=== PATIENT | female | born 1975 | race Caucasian/White ===

== ENCOUNTER 2020-05-01 12:00 | Emergency (ER) | payer OTHER, SELFPAY ==
[2020-05-01 12:44] VITALS: BP 125/67; PULSE 85; RESP 20; TEMP 37.1; O2SAT 100
--- NOTE | 2020-05-01 13:02 | ED.URI ---
HPI - URI/Sore Throat General Chief Complaint: Upper Respiratory Infection Stated Complaint: headach,sore throat fever nausea Time Seen by Provider: 05/01/20 13:02 Source: patient and RN notes reviewed History of Present Illness HPI Narrative: Patient is a 44-year-old female who presents the urgent care with complaints of migraine that started which does improve slightly with Tylenol, intermittent fevers as high as 100 Fahrenheit, a slight nonproductive cough without shortness of breath. Patient states that she started with a right earache yesterday and woke up today with a sore throat. Patient states that she does have some mild sinus drainage on the back of her throat. States that she is also vomited a couple times each day, with the exception of today. Patient denies of any abdominal pain. States that she does work with the public at a local [employer] and no one else is sick. Patient states that her is also not been feeling ill. Patient denies any other use of [id number] medication for her symptoms. No acute distress noted. Patient read the plan of care. Related Data Home Medications Medication Instructions Recorded Confirmed albuterol sulfate 2 inh INHALATION DAILY 05/01/20 05/01/20 fluticasone propionate [Flovent 1 puff INHALATION Q12H 05/01/20 05/01/20 HFA] Allergies Allergy/AdvReac Type Severity Reaction Status Date / Time aspirin AdvReac Unknown Ulcers Unverified 05/01/20 12:54 NSAIDS (Non-Steroidal AdvReac Unknown Ulcers Unverified 05/01/20 12:54 Anti-Inflamma Review of Systems Review of Systems: Narrative: CONSTITUTIONAL: Reports of low-grade fevers EYES: Denies visual changes, redness, or discharge. ENT: Reports of left otalgia and sore throat with mild postnasal drainage CARDIOVASCULAR: Denies chest pain, palpitations, or edema. RESPIRATORY: Reports of nonproductive cough without dyspnea GASTROINTESTINAL: Reports of intermittent vomiting without nausea or abdominal pain GENITOURINARY: Denies dysuria or hematuria. SKIN: Denies rash or itching. MUSCULOSKELETAL: Denies back pain, joint pain, or myalgia. NEUROLOGIC: Denies headache, numbness, or weakness. All other systems reviewed are negative, except as documented in HPI. PMFSH Comments At the time of my signature, I reviewed and agree with the nursing past medical, surgical, social, and family history. There is no relevant family history pertinent to the patient complaint. Exam Narrative: Exam Narrative: GENERAL: This is a well-nourished, well-developed patient, appears slightly fatigued HEAD: normocephalic, atraumatic. EYES: PERRL. Sclera clear/white. Vision is grossly intact. EARS: External ears normal, auditory canals clear and without drainage, TMs normal without perforation. Hearing grossly intact. NOSE: External nose normal with no obvious nasal discharge, nares without redness, no rhinorrhea. THROAT: Mucous membranes moist, mild erythema noted posterior oropharynx mild postnasal drainage NECK: Neck supple CARDIOVASCULAR: Regular rate and rhythm without murmurs, gallops, or rubs. RESPIRATORY: Clear to auscultation. Breath sounds equal bilaterally. No wheezes, rales, or rhonchi. GASTROINTESTINAL: Abdomen soft, non-tender, nondistended. SKIN: warm, intact with no suspicious lesions or rash, good texture and turgor. NEURO: awake, alert, and oriented to person, place and time. There were no obvious focal neurologic abnormalities. EXTREMITIES: No clubbing, cyanosis, or edema. Course Vital Signs Vital signs: Vital Signs Temperature 98.8 F 05/01/20 12:44 Pulse Rate 85 05/01/20 12:44 Respiratory Rate 05/01/20 12:44 Blood Pressure 125/67 05/01/20 12:44 Pulse Oximetry 100 05/01/20 12:44 Temperature 98.8 F 05/01/20 12:44 Pulse Rate 85 05/01/20 12:44 Respiratory Rate 05/01/20 12:44 Blood Pressure 125/67 05/01/20 12:44 Pulse Oximetry 100 05/01/20 12:44 Reviewed MDM - URI/Sore Thr
== END 2020-05-01 13:41 | disposition home or self-care (01) ==
PROVIDERS: Emergency Provider Nurse Practitioner Family
DX: J02.9 Acute pharyngitis, unspecified (principal); R50.9 Fever, unspecified; Z20.828 Contact with and (suspected) exposure to other viral communicable diseases; I34.1 Nonrheumatic mitral (valve) prolapse; J45.909 Unspecified asthma, uncomplicated
CPT/HCPCS: 87081; 87880; 99213; G0463

== ENCOUNTER 2020-05-03 06:47 | Outpatient (NON) | payer OTHER, SELFPAY ==
[2020-05-03 19:12] LABS: SARS-CoV-2 RNA PCR Negative
== END 2020-05-03 06:48 ==
PROVIDERS: Visit Provider Nurse Practitioner Family
DX: J02.9 Acute pharyngitis, unspecified (principal); R50.9 Fever, unspecified
CPT/HCPCS: 87635; C9803; U0003

== ENCOUNTER 2023-04-02 12:05 | Emergency (ER) | payer OTHER, SELFPAY ==
[2023-04-02 12:15] VITALS: BP 129/84; PULSE 92; RESP 18; TEMP 36.2; O2SAT 99
--- NOTE | 2023-04-02 12:27 | ED.GENADULT ---
HPI - General Adult General Chief complaint: Upper Respiratory Infection Stated complaint: Shortness of Breath/Cough Time Seen by Provider: 04/02/23 12:28 Source: patient, RN notes reviewed and old records reviewed Mode of arrival: ambulatory Limitations: no limitations History of Present Illness HPI narrative: 47-year-old female with a history of asthma presents for shortness of breath and cough. Patient states that started 4-5 days ago as a runny nose and has progressively gotten worse to chest tightness, cough and shortness of breath. Normally uses her inhaler, albuterol twice daily when this starts but has been using it up to 4 times a day with no improvement. Denies any chest pain, fevers. Onset (ago): day(s) (-5) Related Data Home Medications Medication Instructions Recorded Confirmed albuterol sulfate 90 mcg/actuation 2 inh inhalation DAILY 05/01/20 04/02/23 aerosol inhaler fluticasone propionate 220 1 puff inhalation Q12H 05/01/20 04/02/23 mcg/actuation HFA aerosol inhaler (Flovent HFA) budesonide-formoterol HFA 160 2 puff inhalation BID 04/02/23 04/02/23 mcg-4.5 mcg/actuation aerosol inhaler Allergies Allergy/AdvReac Type Severity Reaction Status Date / Time aspirin AdvReac Unknown Ulcers Unverified 04/02/23 12:25 NSAIDS (Non-Steroidal AdvReac Unknown Ulcers Unverified 04/02/23 12:25 Anti-Inflamma Review of Systems Review of Systems: All systems reviewed & are unremarkable except as noted in HPI and below Constitutional: Constitutional: Reports no additional constitutional complaints Eyes: Eyes: Reports no additional eye complaints ENT: Reports system reviewed and no additional complaints, except as documented Cardiovascular: Cardiovascular: Reports no additional cardiovascular complaints, Denies chest pain and Denies dyspnea Respiratory: Respiratory: Reports as per HPI, Reports chest congestion, Reports cough, Reports dyspnea and Reports wheezing Gastrointestinal: Gastrointestinal: Reports no additional gastrointestinal complaints, Denies abdominal pain, Denies nausea and Denies vomiting Musculoskeletal: Musculoskeletal: Reports no additional musculoskeletal complaints Integumentary/Breasts: Skin/Breast: Reports system reviewed and no additional complaints, except as docu Neurologic: Reports system reviewed and no additional complaints, except as documented Psychiatric: Psychiatric: Reports no additional psychiatric complaints Allergic/Immunologic: Allergic/Immunologic: Reports no additional allergic/immunologic complaints PMFSH Past Medical History Medical History (Updated 04/02/23 @ 19:41 by Jaquelin Diaz APRN) Asthma Comments At the time of my signature, I reviewed and agree with the nursing past medical, surgical, social, and family history. There is no relevant family history pertinent to the patient complaint. Exam Const: General: cooperative, healthy appearing, comfortable, no acute distress, well developed, alert and well nourished Nutritional Appearance: well nourished Orientation/consciousness: patient oriented x3 Limitations: no limitations HENMT: Head: normal to inspection Ears: hearing grossly normal bilaterally, external ears normal, TM's normal bilaterally and EAC's normal Face/Nose/Sinus: Normal external nose present, Normal nares present, Normal nasal mucous membranes and turbinates present and normal facial exam Face and sinus: normal facial exam Mouth: Yes Normal oral and palatal mucosa present, Yes lip normal and Yes moist mucous membranes Throat: posterior oropharynx normal, uvula midline and postnasal drainage Eyes: General: appearance normal, both eyes and all related structures Alignment and Position: alignment normal Periorbital: periorbital findings normal Pupils: Equal, round and reactive pupils present EOM: EOMs intact bilaterally Neck: Neck: normal visual inspection, full ROM, no lymphadenopathy and no meningeal signs Chest: Chest
== END 2023-04-02 12:47 | disposition home or self-care (01) ==
PROVIDERS: Emergency Provider Nurse Practitioner
DX: J40 Bronchitis, not specified as acute or chronic (principal); J45.909 Unspecified asthma, uncomplicated
CPT/HCPCS: 99213; G0463

== ENCOUNTER 2023-08-24 14:51 | Emergency (ER) | payer OTHER, SELFPAY ==
--- NOTE | ~2023-08-24 | XR_ITS ---
EXAMINATION: XR foot RT min 3V DATE: 08/24/2023 15:37 INDICATION: Pain at the arch of the right foot TECHNIQUE: Dorsoplantar, two oblique and lateral views of the right foot were obtained. COMPARISON: None. FINDINGS: Alignment is normal. No fracture. Joint spaces are normal. Small plantar calcaneal spur. Soft tissues are unremarkable. IMPRESSION: 1. Small plantar calcaneal spur. No acute osseous abnormality. Reviewed, dictated and finalized at location A. [employer] VICE PRESIDENT
[2023-08-24 15:02] VITALS: BP 151/97; PULSE 101; RESP 16; TEMP 36.9; O2SAT 98
--- NOTE | 2023-08-24 15:13 | ED.LOWEXIN ---
HPI - Extremity Injury (Lower) General Chief Complaint: Extremity Problem,Nontraumatic Stated Complaint: Right Foot Pain Time Seen by Provider: 08/24/23 15:13 Source: patient Mode of arrival: ambulatory Limitations: no limitations History of Present Illness HPI Narrative: 47-year-old female presented for complaint of right foot pain. Onset 1 month. She reports the pain is worse to the bottom of the foot and heel. Pain is constant, sharp. Rates 8/10. Pain is starting to radiate up towards the knee. Denies injury. denies numbness, tingling, weakness of the extremity. Patient is scheduled with PCP next week but states she could not wait. Taking Tylenol occasionally for pain. Related Data Home Medications Medication Instructions Recorded Confirmed albuterol sulfate 90 mcg/actuation 2 inh inhalation DAILY 05/01/20 08/24/23 aerosol inhaler budesonide-formoterol HFA 160 2 puff inhalation BID 04/02/23 08/24/23 mcg-4.5 mcg/actuation aerosol inhaler Allergies Allergy/AdvReac Type Severity Reaction Status Date / Time aspirin AdvReac Unknown Ulcers Unverified 08/24/23 15:03 NSAIDS (Non-Steroidal AdvReac Unknown Ulcers Unverified 08/24/23 15:03 Anti-Inflamma Review of Systems Review of Systems: CONSTITUTIONAL: Denies body aches, fever, chills EYES: Denies visual changes ENT: Denies rhinorrhea, congestion CARDIOVASCULAR: Denies chest pain, palpitations, or edema. RESPIRATORY: Denies cough or dyspnea. GASTROINTESTINAL: Denies abdominal pain, nausea, vomiting, or diarrhea. SKIN: Denies rash, itching, or wounds. MUSCULOSKELETAL: Reports right foot pain Denies back pain, joint pain, or myalgia. NEUROLOGIC: Denies headache, numbness, tingling, or weakness. PSYCH: Denies depression or anxiety. All systems reviewed & are unremarkable except as noted in HPI and below PMFSH Past Medical History Medical History Asthma Comments At time of signature, I have reviewed and agree with nursing past medical, surgical, social and family history unless otherwise noted. Please see nursing chart for further information. There is no relevant family history pertinent to the presenting complaint Exam Narrative: GENERAL: Well-appearing, and in no acute distress. HEAD: Normocephalic, atraumatic. CHEST: Speaks in full sentences. No respiratory distress. HEART: Regular rate and rhythm. Normal and equal peripheral pulses. EXTREMITIES: Pain reported on Right foot plantar surface mid foot to heel. Tender with palpation surrounding heel. No swelling erythema or bruising.Right foot has normal strength and sensation, normal range of motion but endorses pain to heel with flexion/extension of ankle. No open wounds, or obvious deformity; alignment normal, pulse palpable and equal bilaterally, skin warm, dry, pink. Capillary refill less than 3 seconds. SKIN: Warm, dry, no rash. NEURO: Alert and oriented x3. PSYCH: Normal mood and affect Course Course Emergency Course: Patient is aware of diagnosis, understands and agrees to treatment plan. Anticipatory guidance given. Patient agrees to follow-up as directed and is aware of reasons to seek care at the emergency department. Portions of this record may have been created with voice recognition software Level of Care: Express Care Visit Vital Signs Vital signs: Vital Signs Temperature 98.4 F 08/24/23 15:02 Pulse Rate 101 H 08/24/23 15:02 Respiratory Rate 16 08/24/23 15:02 Blood Pressure 151/97 H 08/24/23 15:02 Pulse Oximetry 98 08/24/23 15:02 Oxygen Delivery Room Air 08/24/23 15:02 Temperature 98.4 F 08/24/23 15:02 Pulse Rate 101 H 08/24/23 15:02 Respiratory Rate 16 08/24/23 15:02 Blood Pressure 151/97 H 08/24/23 15:02 Pulse Oximetry 98 08/24/23 15:02 Oxygen Delivery Room Air 08/24/23 15:02 Reviewed MDM - Extremity Injury (Lower) MDM Narrative Medical decisio
== END 2023-08-24 16:01 | disposition home or self-care (01) ==
PROVIDERS: Emergency Provider Nurse Practitioner Family
DX: M79.671 Pain in right foot (principal); J45.909 Unspecified asthma, uncomplicated
CPT/HCPCS: 73630; 99213; G0463

== ENCOUNTER 2024-07-13 10:00 | Emergency (ER) | payer OTHER, SELFPAY ==
[2024-07-13 10:24] VITALS: BP 103/78; PULSE 97; RESP 18; TEMP 36.7; O2SAT 98
--- NOTE | 2024-07-13 10:37 | ED.URI ---
HPI - URI/Sore Throat General Chief Complaint: Upper Respiratory Infection Stated Complaint: Migraine Time Seen by Provider: 07/13/24 10:37 History of Present Illness HPI Narrative: 48 y/o female with hx COPD presented for c/o headache, sore throat, cough, nasal congestion and sinus pressure. Onset 2 days. States the cough feels tight in the chest. Using inhalers as directed. Denies sob, wheezing, n/v/d/f/c. Related Data Home Medications Medication Instructions Recorded Confirmed albuterol sulfate 90 mcg/actuation 2 inh inhalation DAILY 05/01/20 07/13/24 aerosol inhaler budesonide-formoterol HFA 160 2 puff inhalation BID 04/02/23 07/13/24 mcg-4.5 mcg/actuation aerosol inhaler Allergies Allergy/AdvReac Type Severity Reaction Status Date / Time aspirin AdvReac Unknown Ulcers Verified 07/13/24 10:31 NSAIDS (Non-Steroidal AdvReac Unknown Ulcers Verified 07/13/24 10:31 Anti-Inflamma Review of Systems Review of Systems: CONSTITUTIONAL: Denies body aches, fever, chills, or sweats. EYES: Denies visual changes, redness, or discharge. ENT: reports rhinorrhea, congestion, sore throat otalgia. CARDIOVASCULAR: Denies chest pain, palpitations, or edema. RESPIRATORY: Denies dyspnea. GASTROINTESTINAL: Denies abdominal pain, nausea, vomiting, or diarrhea. SKIN: Denies rash, itching, or wounds. MUSCULOSKELETAL: Denies back pain, joint pain, or myalgia. NEUROLOGIC: reports headache PMFSH Past Medical History Medical History Asthma Surgical History Surgical History History of cholecystectomy Family History Family History Father Alcoholism Mother Lung cancer Sibling Alcoholism Hypertension Other Asthma Social History Social History Smoking status: Never smoker Alcohol intake: current Alcohol use details: occasionally Substance use: never Substance use type: does not use Do You Feel Safe in your Home?: Yes Lack of Transportation: No Lack of Food: Never True Current Housing: I Have Housing Concerned About Future Housing: No Difficulty Paying Gas/Electric Bills: No Difficulty Paying for Meds: No Currently Unemployed: No Education: Grade School Difficulty w/ Childcare or Family Care: No Exam Narrative: GENERAL: mildly Ill-appearing, no acute distress. EYES: conjunctivae clear ENT: Mucous membranes moist. TMs pearly momin with normal light reflex bilaterally; no tragal tenderness. Oropharynx severely erythematous Tonsils enlarged 2+ with exudate. No drooling, no hoarseness, no trismus, uvula midline. No tripod positioning, hot potato voice, or soft palate swelling. NECK: Supple. bilaterally anterior cervical lymphadenopathy CHEST: Clear to auscultation, breath sounds equal. No respiratory distress, speaks in full sentences. HEART: Regular rate and rhythm. No murmur heard. SKIN: Warm, dry, no rash. NEURO: Alert and oriented x3. Course Course Emergency Course: Patient is aware of diagnosis, understands and agrees to treatment plan. Anticipatory guidance given. Patient agrees to follow-up as directed and is aware of reasons to seek care at the emergency department. Portions of this record may have been created with voice recognition software Level of Care: Express Care Visit Vital Signs Vital signs: Vital Signs Temperature 98.1 F 07/13/24 10:24 Pulse Rate 97 07/13/24 10:24 Respiratory Rate 18 07/13/24 10:24 Blood Pressure 103/78 07/13/24 10:24 Pulse Oximetry 98 07/13/24 10:24 Oxygen Delivery Room Air 07/13/24 10:24 Temperature 98.1 F 07/13/24 10:24 Pulse Rate 97 07/13/24 10:24 Respiratory Rate 18 07/13/24 10:24 Blood Pressure 103/78 07/13/24 10:24 Pulse Oximetry 98 07/13/24 10:24
[2024-07-13 10:47] LABS: EDCOVIDSCREEN Negative (Negative); EDINFLUASCREEN Negative (Negative); EDINFLUBSCREEN Negative (Negative); EDSTREPNEGPOS1 Negative (Negative)
== END 2024-07-13 10:50 | disposition home or self-care (01) ==
PROVIDERS: Emergency Provider Nurse Practitioner Family; PCP Family Medicine
DX: J06.9 Acute upper respiratory infection, unspecified (principal); Z20.822 Contact with and (suspected) exposure to COVID-19; J44.9 Chronic obstructive pulmonary disease, unspecified
CPT/HCPCS: 87081; 87426; 87804; 87880; 99213; G0463

== ENCOUNTER 2024-12-20 14:47 | Outpatient (CLI) | payer OTHER, SELFPAY | END 2024-12-20 14:48 | disposition home or self-care (01) | PROVIDERS: Visit Provider Neurological Surgery | DX: M47.26 Other spondylosis with radiculopathy, lumbar region (principal) | CPT/HCPCS: 72148 ==